=== PATIENT | male | born 1950 | race Caucasian/White ===

== ENCOUNTER → 2018-03-27 | Outpatient (CLI) | payer OTHER ==
--- NOTE | 2018-03-27 14:38 | Diagnostic Imaging Report ---
History: Left shoulder pain. No injury Comparison studies: None Technique: Sagittal T1, T2 and IR, axial T2 and axial gradient echo Intravenous contrast: None Findings: Alignment: Straightening of the normal lordosis. No scoliosis. Cervicomedullary junction: No abnormalities. Patent foramen magnum. Soft tissues: No T2 hyperintense inflammatory changes. Spinal cord: Normal in size and signal from the foramen magnum through T4 Vertebrae: Normal in height and signal intensity. No fractures, infection or neoplasm. Degenerative changes: C2-C3: Disc degeneration with loss of T2 signal. Left facet hypertrophy results in no significant canal stenosis and mild left foraminal narrowing C3-C4: Disc degeneration with loss of T2 signal and decreased intervertebral space. Diffuse disc osteophyte complex, bilateral uncinate process hypertrophy results in mild canal stenosis and mild bilateral foraminal narrowing C4-C5: Disc degeneration with loss of T2 signal and decreased intervertebral space. Mild endplate edema at C4 inferior endplate posterior aspect. Diffuse disc osteophyte complex, bilateral uncinate and facet hypertrophy results in moderate canal stenosis, severe right and moderate left foraminal narrowing C5-C6: Disc degeneration with loss of T2 signal, decreased intervertebral space and mild Modic type I changes. Central disc osteophyte complex, bilateral uncinate process hypertrophy and ligamentum flavum thickening results in mild canal stenosis and moderate bilateral foraminal narrowing C6-C7: Disc degeneration with loss of T2 signal and decreased intervertebral space. Diffuse disc osteophyte complex and bilateral uncinate process hypertrophy results in mild canal stenosis and mild bilateral foraminal narrowing. C7-T1: Disc degeneration with loss of T2 signal and decreased intervertebral space. Small central disc osteophyte complex and bilateral facet hypertrophy results in mild canal stenosis and moderate bilateral foraminal narrowing more prominent on the right IMPRESSION: 1. Moderate degenerative canal stenosis, severe right and moderate left degenerative foraminal narrowing at C4-5. 2. Moderate degenerative foraminal narrowing at C5-6 and C7-T1 bilaterally. 3. Mild degenerative canal stenosis at C3-4 and from C5 through C7. 4. Diffuse disc degeneration with mild Modic type I changes at C5-6 Signed by: DR Armond Turk M.D. on 03/27/2018 2:35 PM
== END ==
LOC: MRI 07:30
PROVIDERS: ATTEND Family Medicine
DX: M54.2 Cervicalgia (principal); S13.4XXA Sprain of ligaments of cervical spine, initial encounter; M53.82 Other specified dorsopathies, cervical region
CPT/HCPCS: 72141